=== PATIENT | female | born 1980 | race Two or more races ===

== ENCOUNTER 2021-09-20 14:45 | Inpatient (IN) | payer OTHER ==
[~2021-09-20] VITALS: Ht 175.3 cm; Wt 3.2 kg
[2021-10-02] MEDS ORDERED: SYNTHROID137 MCG PO (15:52)
[2021-10-03] MEDS ORDERED: PRENA1 CHEW TA1.4 MG PO (09:28)
[2021-10-03] MEDS ORDERED: SYNTHROID125 MCG (14:43)
[2021-10-07] MEDS ORDERED: OXYC1TAB9 PO (10:28)
== END 2021-10-07 14:02 | disposition home or self-care (01) | DRG 788 ==
LOC: OB/GYN 10-03 08:45 → O/R 10-03 08:45 → OB/GYN 10-03 14:45
PROVIDERS: ADMIT Obstetrics & Gynecology Maternal & Fetal Medicine; ATTEND Obstetrics & Gynecology Maternal & Fetal Medicine
PROC: 4A1HXCZ Monitoring of Products of Conception, Cardiac Rate, External Approach (ICD-10-PCS; 2021-10-03)
PROC: 10D00Z1 Extraction of Products of Conception, Low, Open Approach (ICD-10-PCS; principal; 2021-10-03 17:45)
DX: O32.1XX0 Maternal care for breech presentation, not applicable or unspecified (principal); Z3A.39 39 weeks gestation of pregnancy; Z37.0 Single live birth; Z20.822 Contact with and (suspected) exposure to COVID-19